=== PATIENT | male | born 1985 | race Caucasian/White ===

== ENCOUNTER → 2023-11-15 07:01 | Outpatient (REF) | payer BC, SELFPAY | LOC: HWRAD 07:01 | PROVIDERS: ATTENDING PHYSICIAN Nurse Practitioner Family | DX: R94.5 Abnormal results of liver function studies (principal) | CPT/HCPCS: 76700 ==

== ENCOUNTER → 2024-12-11 07:46 | Outpatient (REF) | payer BC, SELFPAY | LOC: HWRAD 07:46 | PROVIDERS: ATTENDING PHYSICIAN Student in an Organized Health Care Education/Training Program; FAMILY PHYSICIAN Nurse Practitioner Family | DX: M25.541 Pain in joints of right hand (principal) | CPT/HCPCS: 73130 ==

== ENCOUNTER → 2025-04-15 10:06 | Outpatient (REF) | payer BC, SELFPAY | LOC: RAD 10:06 | PROVIDERS: ATTENDING PHYSICIAN Nurse Practitioner Family | DX: M54.2 Cervicalgia (principal) | CPT/HCPCS: 72050 ==

== ENCOUNTER → 2025-04-20 11:38 | Outpatient (REF) | payer BC, SELFPAY | LOC: REG 11:38 | PROVIDERS: ATTENDING PHYSICIAN Nurse Practitioner Family | DX: M79.602 Pain in left arm (principal) | CPT/HCPCS: 71046; 73030 ==

== ENCOUNTER → 2025-04-21 18:00 | Outpatient (REF) | payer BC, SELFPAY | LOC: MRI 3T 18:00 | PROVIDERS: ATTENDING PHYSICIAN Nurse Practitioner Family | DX: M54.2 Cervicalgia (principal) | CPT/HCPCS: 72141 ==